=== PATIENT | female | born 1965 | race Caucasian/White ===

== ENCOUNTER 2017-02-19 10:31 | Outpatient (CLI) | payer OTHER ==
[2017-02-19 12:46] LABS: #Basophils 0.2 thou/uL (0.0-0.2); #Eosinphils 0.1 thou/uL (0.0-0.7); #Lymphocytes 5.5 thou/uL (1.20-3.40); #Monocytes 0.7 thou/uL (0.11-0.59); #Neutrophils 4.8 thou/uL (1.40-6.50); %Basophils 1.5 % (0.0-1.0); %Eosinophils 1.2 % (0.0-10.0); %Lymphocytes 48.7 % (21.0-51.0); %Neutrophils 42.6 % (42.0-75.0); Hemoglobin 15.6 g/dL (12.0-16.0); Mean Corpuscular HGB CONC 32.2 g/dL (32.0-36.0); Mean Corpuscular Hemoglobin 29.8 pg (27.0-31.0); Mean Corpuscular Volume 92.7 fl (81.0-99.0); Mean Platelet Volume 6.4 fL (7.4-10.4); Platelet Count 458 thou/uL (130-400); RBC Distribution Width 12.6 % (11.5-14.5); Red Blood Cell (RBC) Count 5.24 mill/uL (4.20-5.40); White Blood Cell (WBC) Count 11.4 thou/uL (4.8-10.8)
[2017-02-19 13:24] LABS: ALT (SGPT) 71 U/L (8-55); AST (SGOT) 42 U/L (5-34); Albumin 4.2 g/dL (3.5-5.0); Alkaline Phosphatase 175 U/L (40-150); Anion Gap 15 mmol/L (10-20); BUN (Urea Nitrogen) 11 mg/dL (9.8-20.1); Bilirubin, Total 0.5 mg/dL (0.2-1.2); Calc. Creatinine Clearance 0 mL/min (70-130); Calcium 9.9 mg/dL (7.8-10.44); Carbon Dioxide 23 mmol/L (22-29); Chloride 107 mmol/L (98-107); Estimated GFR-MDRD 80; Globulin 2.9 g/dL (2.4-3.5); Glucose 109 mg/dL (70-105); Lipase 5 U/L (8-78); Potassium 4.8 mmol/L (3.5-5.1); Protein, Total 7.1 g/dL (6.0-8.3); Sodium 140 mmol/L (136-145)
== END 2017-02-19 10:32 | disposition home or self-care (01) ==
LOC: NAVSJIPCSP 10:31
DX: R10.13 Epigastric pain (principal); R19.4 Change in bowel habit
CPT/HCPCS: 36415; 80053; 82150; 83690; 85025

== ENCOUNTER 2017-02-20 12:11 | Outpatient (CLI) | payer OTHER ==
--- NOTE | 2017-02-20 13:54 | ULT ---
ABDOMINAL ULTRASOUND: HISTORY: Right flank pain, abdominal pain, and back pain. FINDINGS: The patient is post cholecystectomy. The patient is post splenectomy. The liver is very echogenic, suggesting diffuse fatty infiltration. The common bile duct is 7 mm, w hich is within normal limits for post cholecystectomy status. The pancreas is obscured. The visual ized aorta and IVC appear unremarkable. The right kidney measures 11 cm in length. No evidence of hydronephrosis. There are two echogenic foci seen in the cortex of the right kidney, the largest measuring 7 mm and the smaller measuring 4 mm. These do not exhibit posterior shadowing. Considerations include angiomyolipoma. The left kidney measures 13 cm in length. There is a mid pole cyst, measuring 2 cm. No hydronephro sis. IMPRESSION: 1. Fair echogenic liver, suggesting diffuse fatty infiltration. 2. Post cholecystectomy and post splenectomy. 3. There are two echogenic foci in the right renal cortex. These do not exhibit posterior shadowin g and do not appear to represent calculi. Angiomyolipoma are considerations, given echogenic charac ter. CT could be performed for confirmation. Otherwise, if CT is not obtained, recommend follow-up renal ultrasound in three months to confirm stability. 4. A left renal cyst is noted, as described above. POS: [facility]
== END 2017-02-20 12:12 | disposition home or self-care (01) ==
LOC: NAV ULT 12:11
PROVIDERS: ATTEND Internal Medicine Gastroenterology
DX: R10.9 Unspecified abdominal pain (principal); Q61.01 Congenital single renal cyst; Z90.49 Acquired absence of other specified parts of digestive tract
CPT/HCPCS: 76700

== ENCOUNTER 2018-02-24 12:59 | Emergency (ER) | payer OTHER ==
[2018-02-24] MEDS ORDERED: traMADol HCl 50 MG TAB ONE (14:58)
[2018-02-24] MEDS ORDERED: Orphenadrine Citrate 60 MG/2 ML VIAL ONE (14:59)
--- NOTE | 2018-02-24 15:52 | RAD ---
CHEST TWO VIEWS: History: Ongoing neck and upper back pain. Comparison: 06-22-14 FINDINGS: Calcified right perihilar lymph nodes. Normal cardiac silhouette. The lungs and pleural spaces are cl ear. No pneumothorax or osseous abnormality. IMPRESSION: No acute cardiopulmonary process. POS: [facility]
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
== END 2018-02-24 19:07 | disposition short-term general hospital (02) ==
LOC: NAV ERS 12:59
DX: M54.2 Cervicalgia (principal); M54.6 Pain in thoracic spine; R20.2 Paresthesia of skin; E03.9 Hypothyroidism, unspecified; E78.5 Hyperlipidemia, unspecified; F17.210 Nicotine dependence, cigarettes, uncomplicated; Z79.899 Other long term (current) drug therapy
CPT/HCPCS: 71046; 72052; 72128; 93005; 96372; J2360

== ENCOUNTER 2018-04-29 09:46 | Emergency (ER) | payer OTHER ==
[2018-04-29 10:58] LABS: Bilirubin Negative (Negative); Blood, Urine Negative (Negative); Clarity Clear (Clear); Glucose, Urine (Dipstick) Negative (Negative); Leukocyte Negative (Negative); Nitrite Negative (Negative); Protein, Urine (Dipstick) Negative (Neg-Trace); Urobilinogen 0.2 mg/dL (0.2-1.0); pH, Urine 5.5 (5.0-9.0)
[2018-04-29 11:25] LABS: Troponin I 0.014 ng/mL (< 0.028)
[2018-04-29 11:27] LABS: ALT (SGPT) 67 U/L (8-55); AST (SGOT) 39 U/L (5-34); Albumin 4.3 g/dL (3.5-5.0); Alkaline Phosphatase 151 U/L (40-150); Anion Gap 12 mmol/L (10-20); BUN (Urea Nitrogen) 14 mg/dL (9.8-20.1); Bilirubin, Total 0.3 mg/dL (0.2-1.2); Calc. Creatinine Clearance 0 mL/min (70-130); Calcium 9.9 mg/dL (7.8-10.44); Carbon Dioxide 27 mmol/L (22-29); Chloride 107 mmol/L (98-107); Estimated GFR-MDRD 83; Globulin 2.3 g/dL (2.4-3.5); Glucose 94 mg/dL (70-105); Magnesium 2.6 mg/dL (1.6-2.6); Potassium 4.7 mmol/L (3.5-5.1); Protein, Total 6.6 g/dL (6.0-8.3); Sodium 141 mmol/L (136-145)
[2018-04-29 11:39] LABS: Hemoglobin 15.2 g/dL (12.0-16.0); Mean Corpuscular HGB CONC 31.4 g/dL (32.0-36.0); Mean Corpuscular Hemoglobin 30.5 pg (27.0-31.0); Mean Corpuscular Volume 97.1 fL (78.0-98.0); Mean Platelet Volume 6.2 fL (7.4-10.4); Platelet Count 468 thou/uL (130-400); RBC Distribution Width 11.8 % (11.5-14.5); Red Blood Cell (RBC) Count 4.99 mill/uL (4.20-5.40); White Blood Cell (WBC) Count 11.2 thou/uL (4.8-10.8)
[2018-04-29 11:41] LABS: Lymphocytes 54 % (21-51)
[2018-04-29 11:42] LABS: Eosinophils 4 % (0-10); MDiff Complete? YES; Monocytes 8 % (0-10)
[2018-04-29 11:44] LABS: Specific Gravity, Urine 1.005 (1.002-1.036)
--- NOTE | 2018-04-29 11:48 | CT ---
CT BRAIN WITHOUT CONTRAST: HISTORY: Headache. COMPARISON: 06/22/2014 FINDINGS: No evidence of infarct, hemorrhage, midline shift, or abnormal extraaxial fluid collections is seen. The ventricular size is normal, and the basilar cisterns are patent. The bony calvarium is intact. The visualized paranasal sinuses and mastoid air cells are well aerated. IMPRESSION: No CT evidence of acute intracranial process. POS: [facility]
== END 2018-04-29 13:00 | disposition home or self-care (01) ==
LOC: NAV ERS 09:46
DX: R03.0 Elevated blood-pressure reading, without diagnosis of hypertension (principal); E03.9 Hypothyroidism, unspecified; F17.210 Nicotine dependence, cigarettes, uncomplicated; Z79.899 Other long term (current) drug therapy
CPT/HCPCS: 70450; 80053; 81003; 83735; 84484; 85025; 93005; 94760

== ENCOUNTER 2019-05-15 08:44 | Outpatient (CLI) | payer OTHER ==
--- NOTE | 2019-05-15 09:45 | RAD ---
XR Cervical Sp Com W/Obl Fl/Ex History: Cervical radiculopathy. Residual numbness Comparison: MRI May 12, 2019 Findings: Moderate narrowing of the C1/C2 articulation. ACDF hardware at C5/C6 without hardware compl ication. The discectomy cage anterior margin is anterior to the vertebral body, although this is unchanged from the comparison exam. There is new sclerosis of the inferior endplate of C5 and the sup erior endplate of C6 There is mild narrowing of the C3/C4 disc space. Fusion of the C3/C4 facets. Osseous neural foraminal narrowing bilaterally at C3/C4 and C4/C5. 1 mm C4 over C5 anterolisthesis with mild increased motion with flexion and extension. Impression: Abnormal translation at C4/C5.
== END 2019-05-15 08:45 | disposition home or self-care (01) ==
LOC: NAV RAD 08:44
PROVIDERS: ATTEND Neurological Surgery
DX: M47.12 Other spondylosis with myelopathy, cervical region (principal); M47.22 Other spondylosis with radiculopathy, cervical region; R93.7 Abnormal findings on diagnostic imaging of other parts of musculoskeletal system
CPT/HCPCS: 72052

== ENCOUNTER 2020-09-24 16:22 | Emergency (ER) | payer OTHER ==
[~2020-09-24 16:22] MED LIST: Iopamidol 370 76% 100 ML VIAL ONE
[2020-09-24 16:47] LABS: Bilirubin Negative (Negative); Blood, Urine Trace (Negative); Clarity Clear (Clear); Glucose, Urine (Dipstick) Negative (Negative); Ketone, Urine Negative (Negative); Leukocyte Trace (Negative); Nitrite Negative (Negative); Protein, Urine (Dipstick) Negative (Neg-Trace); Specific Gravity, Urine 1.015 (1.005-1.030); Urobilinogen 0.2 mg/dL (Less than 2)
[2020-09-24 17:00] LABS: Bacteria/HPF Rare-Few HPF (None Seen); RBC/HPF None Seen HPF (0-3); Squamous Epithelial 0-3 HPF (0-3); WBC/HPF 0-3 HPF (0-3)
[2020-09-24] MEDS ORDERED: Sodium Chloride 0.9% 1,000 ML ONE (17:05)
[2020-09-24 17:27] LABS: #Basophils 0.1 thou/uL (0.0-0.2); #Lymphocytes 4.2 thou/uL (1.20-3.40); #Monocytes 0.9 thou/uL (0.11-0.59); #Neutrophils 4.1 thou/uL (1.40-6.50); %Basophils 0.6 % (0.0-1.0); %Eosinophils 0.1 % (0.0-10.0); %Lymphocytes 45.6 % (21.0-51.0); %Monocytes 9.5 % (0.0-10.0); %Neutrophils 44.2 % (42.0-75.0); Hemoglobin 15.4 g/dL (12.0-16.0); Mean Corpuscular HGB CONC 30.6 g/dL (32.0-36.0); Mean Corpuscular Hemoglobin 29.7 pg (27.0-31.0); Mean Platelet Volume 6.8 fL (7.4-10.4); Platelet Count 411 thou/uL (130-400); RBC Distribution Width 11.4 % (11.5-14.5); Red Blood Cell (RBC) Count 5.18 mill/uL (4.20-5.40); White Blood Cell (WBC) Count 9.3 thou/uL (4.8-10.8)
[2020-09-24 17:42] LABS: ALT (SGPT) 29 U/L (8-55); AST (SGOT) 30 U/L (5-34); Albumin 3.6 g/dL (3.5-5.0); Alkaline Phosphatase 137 U/L (40-110); Anion Gap 14 mmol/L (10-20); BUN (Urea Nitrogen) 8 mg/dL (9.8-20.1); Calc. Creatinine Clearance 0 mL/min (70-130); Calcium 8.5 mg/dL (7.8-10.44); Carbon Dioxide 22 mmol/L (22-29); Chloride 102 mmol/L (98-107); Globulin 3.3 g/dL (2.4-3.5); Glucose 156 mg/dL (70-105); Potassium 3.1 mmol/L (3.5-5.1); Protein, Total 6.9 g/dL (6.0-8.3); Sodium 135 mmol/L (136-145)
[2020-09-24 18:01] LABS: Bilirubin, Total 0.3 mg/dL (0.2-1.2)
[2020-09-24] MEDS ORDERED: cefTRIAXone\\ROCEPHIN 1 GM VIAL ONE (18:58)
[2020-09-24] MEDS ORDERED: Sodium Chloride 0.9% 100 ML ONE (18:59)
[2020-09-24] MEDS ORDERED: Acetaminophen 500 MG TAB ONE (19:10)
[2020-09-25 20:50] LABS: SARS-CoV-2 PCR by NAA DETECTED (NotDetected)
== END 2020-09-24 20:28 | disposition home or self-care (01) ==
LOC: NAV ERS 16:22
DX: U07.1 COVID-19 (principal); J12.82 Pneumonia due to coronavirus disease 2019; N39.0 Urinary tract infection, site not specified; M06.9 Rheumatoid arthritis, unspecified; E03.9 Hypothyroidism, unspecified; F17.210 Nicotine dependence, cigarettes, uncomplicated; Z79.899 Other long term (current) drug therapy
CPT/HCPCS: 71046; 74177; 80053; 81003; 81015; 83605; 85025; 87635; 96365; J0696; J3490; J7050; Q9967; U0003; U0005

== ENCOUNTER 2021-10-26 09:11 | Outpatient (CLI) | payer MEDICARE, OTHER | END 2021-10-26 09:12 | disposition home or self-care (01) | LOC: NAV RAD 09:11 | PROVIDERS: ATTEND Internal Medicine Rheumatology | DX: M54.50 Low back pain, unspecified (principal); M47.816 Spondylosis without myelopathy or radiculopathy, lumbar region | CPT/HCPCS: 72110 ==

== ENCOUNTER 2022-06-01 08:46 | Emergency (ER) | payer OTHER, MEDICARE ==
[2022-06-01] MEDS ORDERED: HYDROcodone/Acetaminophen 5/325 mg Tablet ONE (09:53)
== END 2022-06-01 11:10 | disposition home or self-care (01) ==
LOC: NAV ERS 08:46
DX: S23.41XA Sprain of ribs, initial encounter (principal); R50.9 Fever, unspecified; E03.9 Hypothyroidism, unspecified; M06.9 Rheumatoid arthritis, unspecified; M32.9 Systemic lupus erythematosus, unspecified; W01.190A Fall on same level from slipping, tripping and stumbling with subsequent striking against furniture, initial encounter; Y93.01 Activity, walking, marching and hiking; Y92.009 Unspecified place in unspecified non-institutional (private) residence as the place of occurrence of the external cause; Z87.891 Personal history of nicotine dependence; Z79.899 Other long term (current) drug therapy
CPT/HCPCS: 87804

== ENCOUNTER 2024-06-25 11:38 | Outpatient (CLI) | payer MEDICARE | END 2024-06-25 11:39 | disposition home or self-care (01) | LOC: NAV RAD 11:38 | PROVIDERS: ATTEND Nurse Practitioner Family | DX: J40 Bronchitis, not specified as acute or chronic (principal) | CPT/HCPCS: 71046 ==

== ENCOUNTER 2024-12-02 12:37 | Emergency (ER) | payer OTHER, MEDICARE ==
[2024-12-02] MEDS ORDERED: HYDROcodone/Acetaminophen 10/325 mg Tablet ONE (12:45)
[2024-12-02] MEDS ORDERED: diphenhydrAMINE 25 MG CAP ONE (12:45)
== END 2024-12-02 14:15 | disposition home or self-care (01) ==
LOC: NAV ERS 12:37
DX: T63.001A Toxic effect of unspecified snake venom, accidental (unintentional), initial encounter (principal); R03.0 Elevated blood-pressure reading, without diagnosis of hypertension; E03.9 Hypothyroidism, unspecified; K21.9 Gastro-esophageal reflux disease without esophagitis; Z87.891 Personal history of nicotine dependence; Z79.899 Other long term (current) drug therapy
CPT/HCPCS: 96372; 99283; J1885; Q0162